=== PATIENT | female | born 1965 | race Caucasian/White ===

== ENCOUNTER → 2017-10-25 14:14 | Outpatient (CLI) | payer OTHER, SELFPAY ==
[2017-10-25 14:19] LABS: Bacteria 0 SEEN /hpf (None Seen); Mucous, Urine 0 SEEN /hpf (<or=2+); Red Blood Cells-Urine 0 SEEN /hpf (0-5)
[2017-10-25 15:38] LABS: Absolute Lymphocyte Count 2.66 X10^3/ul (0.83-4.51); Absolute Neutrophil Count 3.6 X10^3/uL (2.0-7.7); Basophil# 0.03 X10^3/uL; Basophil% 0.4 % (0-1); Eosinophil# 0.14 X10^3/uL; Eosinophils% 2.1 % (0-5); Hematocrit 41.9 % (37-47); Hemoglobin 13.4 g/dl (12.0-15.0); Lymphocyte # 2.66 X10^3/ul (4.0); Lymphocyte % 39.1 % (19-41); Mean Corpuscular Hgb 31.3 pg (27.0-32.0); Mean Corpuscular Volume 97.9 fL (81-99); Mean Platelet Vol. 10.3 fl (6.2-12.0); Monocyte# 0.37 X10^3/uL; Monocyte% 5.4 % (0-10); Platelet Count 234 K/mm3 (150-450); RBC Distribution Width CV 12.9 % (11.6-14.6); Red Blood Count 4.28 M/mm3 (4.2-5.4); White Blood Count 6.8 K/mm3 (4.4-11.0)
[2017-10-25 15:41] LABS: Color, Urine Yellow (Yellow); Glucose, Dipstick Normal (Normal); Ketone-Dipstick Negative (Negative); Leukocyte Esterase-Dipstick 100 /ul (Negative); Nitrite-Dipstick Negative (Negative); Occult Blood-Urine Negative /ul (Negative); Protein-Dipstick Negative (Negative); Specific Gravity, Urine 1.005 (1.002-1.030); Urine Bilirubin Dipstick Negative (Negative); Urine Urobilinogen Normal (Normal)
[2017-10-25 15:42] LABS: POSITIVE COUNT NO; POSITIVE DIFFERENTIAL NO; POSITIVE MORPHOLOGY NO
[2017-10-25 16:11] LABS: White Blood Cells 5-10 SEEN /hpf (0-5)
[2017-10-25 16:12] LABS: Squamous Epithelial Cells - UA 0-5 SEEN /hpf (5-10); Urine Clarity Sl Cldy (Clear)
== END ==
PROVIDERS: Family Provider Family Medicine; PCP Family Medicine; Visit Provider Family Medicine
DX: F17.200 Nicotine dependence, unspecified, uncomplicated (principal)
CPT/HCPCS: 36415; 81001; 85025

== ENCOUNTER → 2017-11-10 12:19 | Outpatient (CLI) | payer OTHER, SELFPAY ==
--- NOTE | 2017-11-10 | LES_PTH ---
PATIENT: KINGSLEY BRYANT [id number] AGE/SX: 59/F ROOM: RE11/10/[address]: Dr. Anupam Cutler MD : [id number] BED: DIS: SPEC #: [id number] RECD: 11/10/17 14:17 STATUS: MISTI MIREYA #: [id number] GIGI: 11/10/17 00:[address]: Anupam Cutler DEPT: SURGICAL PATHOLOGY RECD BY: Junior Poe Tissues: A - Skin of axilla, NOS B - Skin of leg, NOS Procedures: Surgery Specimen Level IV HEADER OPERATION: Excision PRE-OP DIAGNOSIS: Skin lesion TISSUE SUBMITTED: A - Right axilla, B ? Right thigh MICROSCOPIC DIAGNOSIS A. Right axilla skin lesion, biopsy: Intradermal nevus. B. 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 SJ:awais 11/11/17 MICROSCOPIC DESCRIPTION Slides are reviewed. GROSS DESCRIPTION A - Received in fixative is one container labeled with the patient's name and designated right axilla. The specimen consists of a punch biopsy of patrick-brown skin measuring 0.3 cm in diameter and 0.3 cm in length. The specimen is totally submitted in one cassette. It will be bisected at the time of embedding. B - Received in fixative is one container labeled with the patient's name and designated skin lesion right thigh. The specimen consists of a punch biopsy of patrick-white skin measuring 0.5 cm in diameter and 0.2 cm in thickness. A brownish lesion is noted on the surface measuring 0.1 cm in greatest dimension. The entire specimen is submitted in one cassette. It will be bisected at the time of embedding. / AVELINA:awais 11/10/17 TC:1 CPT: 96309 x2
== END ==
PROVIDERS: Family Provider Family Medicine; PCP Family Medicine; Visit Provider Family Medicine
DX: L98.9 Disorder of the skin and subcutaneous tissue, unspecified (principal)
CPT/HCPCS: 88305

== ENCOUNTER → 2018-12-25 14:35 | Outpatient (CLI) | payer OTHER, SELFPAY ==
[2016-10-25 12:12] VITALS: BMI 21.1
[2018-12-25 16:21] LABS: Absolute Lymphocyte Count 2.29 X10^3/uL (0.83-4.51); Absolute Neutrophil Count 2.5 X10^3/uL (2.0-7.7); Basophil# 0.03 X10^3/uL; Basophil% 0.6 % (0-1); Eosinophil# 0.14 X10^3/uL; Eosinophils% 2.7 % (0-5); Hematocrit 39.3 % (37-47); Lymphocyte # 2.29 X10^3/ul (4.0); Lymphocyte % 43.6 % (19-41); Mean Corp Hgb Conc 33.1 g/dL (32-36); Mean Corpuscular Hgb 32.2 pg (27.0-32.0); Mean Corpuscular Volume 97.3 fL (81-99); Mean Platelet Vol. 10.5 fl (6.2-12.0); Monocyte# 0.28 X10^3/uL; Monocyte% 5.3 % (0-10); NRBC Flagged by Analyzer 0 % (0-5); Neutrophil # 2.49 X10^3/uL (2.7-7.7); Neutrophil % 47.4 % (47-70); Platelet Count 220 K/mm3 (150-450); RBC Distribution Width CV 12.3 % (11.6-14.6); RBC Distribution Width SD 44.6 fl (35.1-43.9); Red Blood Count 4.04 M/mm3 (4.2-5.4); White Blood Count 5.3 K/mm3 (4.4-11.0)
[2018-12-25 16:40] LABS: BUN 11 mg/dL (7-18); Creatinine, Serum 0.72 mg/dL (0.55-1.02); Glucose 77 mg/dL (74-106)
[2018-12-25 16:41] LABS: ALB/GLOB Ratio 1.1 RATIO (0.9-2.4); AST(SGOT) 15 U/L (15-37); Alanine Aminotransfer ALT/SGPT 25 U/L (13-56); Albumin, Serum 3.7 g/dL (3.2-5.0); Alkaline Phosphatase 117 U/L (45-117); Anion Gap 6 (5-15); BUN/Creat Ratio 15.2 RATIO (10-20); Calcium,Total 8.5 mg/dL (8.5-10.1); Chloride 110 mmol/L (98-107); EST Glomerular Filtration Rate 89 mL/min (>60); Est Glom Filt Rate - Afr Amer 108 mL/min (>60); Globulin 3.4 g/dL (2.2-4.2); Protein, Total 7.1 g/dL (6.4-8.2); Sodium Level 144 mmol/L (136-145); Thyroid Stim Hormone (TSH) 1.37 uIU/mL (0.358-3.74)
[2018-12-26 09:25] LABS: Hepatitis C Antibody Non-Reactive (Nonreactive)
== END ==
PROVIDERS: Family Provider Family Medicine; PCP Family Medicine; Visit Provider Family Medicine Geriatric Medicine
DX: R53.83 Other fatigue (principal); Z13.89 Encounter for screening for other disorder
CPT/HCPCS: 36415; 80053; 84443; 85025; 86803

== ENCOUNTER → 2019-10-11 | Outpatient (CLI) | payer OTHER, SELFPAY ==
[2016-10-25 12:12] VITALS: BMI 21.1
[2019-10-11 15:46] LABS: Absolute Lymphocyte Count 2.22 X10^3/uL (0.83-4.51); Absolute Neutrophil Count 2.4 X10^3/uL (2.0-7.7); Basophil# 0.03 X10^3/uL; Basophil% 0.6 % (0-1); Eosinophil# 0.13 X10^3/uL; Eosinophils% 2.5 % (0-5); Hematocrit 38.6 % (37-47); Hemoglobin 12.6 g/dL (12.0-15.0); Lymphocyte # 2.22 X10^3/ul (4.0); Lymphocyte % 42.8 % (19-41); Mean Corp Hgb Conc 32.6 g/dL (32-36); Mean Corpuscular Hgb 31.7 pg (27.0-32.0); Mean Corpuscular Volume 97.2 fL (81-99); Mean Platelet Vol. 10.6 fl (6.2-12.0); Monocyte# 0.38 X10^3/uL; Monocyte% 7.3 % (0-10); NRBC Flagged by Analyzer 0 % (0-5); Neutrophil # 2.42 X10^3/uL (2.7-7.7); Neutrophil % 46.6 % (47-70); Platelet Count 218 K/mm3 (150-450); RBC Distribution Width CV 12.6 % (11.6-14.6); RBC Distribution Width SD 44.9 fl (35.1-43.9); Red Blood Count 3.97 M/mm3 (4.2-5.4); White Blood Count 5.2 K/mm3 (4.4-11.0)
[2019-10-11 16:16] LABS: ALB/GLOB Ratio 1.1 RATIO (0.9-2.4); AST(SGOT) 22 U/L (15-37); Alanine Aminotransfer ALT/SGPT 25 U/L (13-56); Albumin, Serum 3.8 g/dL (3.2-5.0); Alkaline Phosphatase 96 U/L (45-117); Anion Gap 7 (5-15); BUN 14 mg/dL (7-18); BUN/Creat Ratio 18.5 RATIO (10-20); Calcium,Total 8.9 mg/dL (8.5-10.1); Chloride 107 mmol/L (98-107); Creatinine, Serum 0.76 mg/dL (0.55-1.02); EST Glomerular Filtration Rate 84 mL/min (>60); Est Glom Filt Rate - Afr Amer 102 mL/min (>60); Globulin 3.4 g/dL (2.2-4.2); Glucose 103 mg/dL (74-106); Potassium 3.8 mmol/L (3.5-5.1); Protein, Total 7.2 g/dL (6.4-8.2); Sodium Level 140 mmol/L (136-145); Thyroid Stim Hormone (TSH) 1.34 uIU/mL (0.358-3.74)
--- OUTSIDE RECORDS SUMMARY | 2020-02-17 12:00 | XMS RPT_ITS | CCD ---
:1965 External Reference #:[id number] Author Organization [facility] Care Team Providers Name Role Phone Unavailable Unavailable Unavailable Results Result Name Value Range Unit Interpretation Flag Date Location trop on 2018-12-20 Troponin I.cardiac <0.020 0.000-0.040 ng/mL Normal 9 [facility] [Mass/Vol] [place] ([address]) Comment: Result Comment: Troponin I r eference range: 0.00-0.040 ng/mL Negative an d non-diagnostic. >0.040 ng/mL Consistent with cardiac damage, increased clinical risk and possibility of myocardial in farction. Serial measurements, a rise & fall in test results, clinical histo ry, appropriate symptoms and/or ECG changes may help assess possibility of TN. *Other non-acute coronary sy ndrome conditions such as CHF, myoc arditis, pulmonary emboli, sepsis and cardiac surgery could result in myoc ardial damage and increased troponi n levels. Performed By: #### CBC, ADIF F, ANEU #### [facility] [address] [place], [place] [address] #### TROP, BMP, GFR #### [address] [address] Troponin I.cardiac <0.020 0.000-0.040 ng/mL Normal 9 [facility] [Mass/Vol] [place] ([address]) Comment: Result Comment: Troponin I r eference range: 0.00-0.040 ng/mL Negative an d non-diagnostic. >0.040 ng/mL Consistent with cardiac damage, increased clinical risk and possibility of myocardial in farction. Serial measurements, a rise & fall in test results, clinical histo ry, appropriate symptoms and/or ECG changes may help assess possibility of TN. *Other non-acute coronary sy ndrome conditions such as CHF, myoc arditis, pulmonary emboli, sepsis and cardiac surgery could result in myoc ardial damage and increased troponi n levels. Performed By: #### TROP #### [place] [id number] [place], [place] [id number] nm myocardial spect stress/rest on 2018-12-20 NM MYOCARDIAL ORIGINAL [facility]20-[facility] SPECT STRESS/REST [facility] STRESS/REST (OR) (00 000) CLINICAL STATEMENT: cp TECHNIQUE: Stress Protocol:ANDRÉS Time Exercised:9:00minutes Predicted Max HR:166 Max HR Achieved:144 Percent Max HR:86 Peak Systolic BP:138/72 Rate-Pressure product: 39727 Radiopharmaceutical(rest): Tc-99m Sestamibi IV Dose:10.7 mCi Radiopharmaceutical(stress): Tc-99m Sestamibi IV Dose:32.9 m Ci SPECT acquisition:SPECT nesha nstruction and reorientation into short axis, vertical and horizontal long axis planes Quantitative LVEF assessment COMPARISON:NONE REPORT:Left ventricle appears normal in size on both s tress and rest images. There appears to be fixed de fect in the distal anteroapical and inferoapical region with normal wall motion, suggestive of soft tissue/breast attenuation artifact. Rest of the myocardium has relatively homogenous radiotracer uptake on both stress and rest images . Gated SPECT imaging revealed normal wall motion and normal end-systolic brightening and thickening of all myocardial segments. Normal left ventricle systolic function, calculated LVEF 61%. Normal left v entricle end-diastolic volume 75 mL. TID ratio 1.06. IMPRESSION: 1. No evidence of inducible ischemia. 2. Fixed defect in the dista l anteroapical and inferoapical region suggestive of breast attenuation artifact; although small prior infarct cannot be completely excluded. 3. Normal wall motion and no rmal left ventricle systolic function, calculated LVEF 61%. 4. No prior study available for comparison. Interpreted By: Catarino Greenberg Preliminary Report By: Catarino Greenberg Electronically Signed By: Catarino Greenberg Dictated Date: 12/20/2018 12:06:39 PM Prelim Date: 12/20/2018 12:06:39 PM Sign Date: 12/20/2018 12:11:18 PM mg on 2018-12-20 Magnesium [Mass/Vol] 1.9 1.8-2.4 mg/dL Normal 9 [facility] ([place]) (0000 0) Comment: Performed By: #### CBC, ADIF F, ANEU #### [address] [address] #### TROP, BMP, GFR #### [address] [address] cbc on 2018-12-20 Erythrocyte distribution 13.4 11.5-14.5 % Normal 12-20 [facility] width (RBC) [Ratio] [place] ([place]) ([address]) Comment: Performed By: #### CBC, ADIF F, ANEU #### [address] [address] #### TROP, BMP, GFR, MG #### [address] [address] Hematocrit (Bld) [Volume 37.9 37.0-47.0 % Normal 12-20 [facility] fraction] ([place]) (0000 0) Comment: Performed By: #### CBC, ADIF F, ANEU #### [address] [address] #### TROP, BMP, GFR, MG #### [address] [address] Hemoglobin (Bld) 12.9 12.0-16.0 G/dL Normal 12-20-2018 [facility] [Mass/Vol] [place] ([place]) ([address]) Comment: Performed By: #### CBC, ADIF F, ANEU #### [address] [address] #### TROP, BMP, GFR, MG #### [address] [address] MCH (RBC) [Entitic mass] 32.8 27.0-31.2 pg High 12-20 [facility] ([place]) (0000 0) Comment: Performed By: #### CBC, ADIF F, ANEU #### [address] [address] #### TROP, BMP, GFR, MG #### [address] [address] MCHC (RBC) [Mass/Vol] 33.9 33.0-37.0 G/dL Normal 12-21-19 19 [facility] ([place]) (0000 0) Comment: Performed By: #### CBC, ADIF F, ANEU #### [place] [address] #### TROP, BMP, GFR, MG #### [address] [address] MCV (RBC) [Entitic vol] 96.8 80.0-94.0 fL High 2018 [facility] ([place]) (0000 0) Comment: Performed By: #### CBC, ADIF F, ANEU #### [place] [address] #### TROP, BMP, GFR, MG #### [place] [address] Platelet mean volume 8.4 7.4-10.4 fL Normal 9 [facility] (Bld) [Entitic vol] ([place]) ([address]) Comment: Performed By: #### CBC, ADIF F, ANEU #### [place] [address] #### TROP, BMP, GFR, MG #### [place] [id number] Platelets (Bld) [#/Vol] 202 130-400 10 3/mcL Normal 2018 [facility] ([place]) ([address]) Comment: Performed By: #### CBC, ADIF F, ANEU #### [place] [id number] #### TROP, BMP, GFR, MG #### [place] [address] RBC (Bld) [#/Vol] 3.92 4.20-5.40 10 6/mcL Low 12-20-2018 [facility] ([place]) (0000 0) Comment: Performed By: #### CBC, ADIF F, ANEU #### [address] [address] #### TROP, BMP, GFR, MG #### [address] [address] WBC (Bld) [#/Vol] 5.70 4.60-10.80 10 3/mcL Normal 12-20-2018 [facility] ([place]) ([address]) Comment: Performed By: #### CBC, ADIF F, ANEU #### [address] [address] #### TROP, BMP, GFR, MG #### [address] [address] bmp on 2018-12-20 Calcium [Mass/Vol] 8.6 8.4-10.2 mg/dL Normal 12-20-2018 [facility] ([place]) (0000 0) Comment: Performed By: #### CBC, ADIF F, ANEU #### [address] [address] #### TROP, BMP, GFR #### [address] [address] Chloride [Moles/Vol] 106 98-107 mmol/L Normal 9 [facility] ([place]) (0000 0) Comment: Performed By: #### CBC, ADIF F, ANEU #### [address] [address] #### TROP, BMP, GFR #### [address] [address] CO2 [Moles/Vol] 26 22-29 mmol/L Normal 12-20-2018 [facility] ([place]) ([address]) Comment: Performed By: #### CBC, ADIF F, ANEU #### [address] [address] #### TROP, BMP, GFR #### [address] [address] Creatinine [Mass/Vol] 0.71 0.55-1.02 mg/dL Normal 12-21-19 19 [facility] ([place]) ([address]) Comment: Performed By: #### CBC, ADIF F, ANEU #### [address] [address] #### TROP, BMP, GFR #### [address] [address] Electrolyte Balance 9.0 mEq/L Normal 12-20-2018 [facility] ([place]) ([address]) Comment: Performed By: #### CBC, ADIF F, ANEU #### [address] [address] #### TROP, BMP, GFR #### [address] [address] Glucose [Mass/Vol] 92 70-105 mg/dL Normal 12-20-2018 [facility] ([place] ([address]) Comment: Performed By: #### CBC, ADIF F, ANEU #### [place] [address] #### TROP, BMP, GFR #### [address] [address] Potassium [Moles/Vol] 4.1 3.5-5.1 mmol/L Normal 12-21-19 [facility] ([place] (0000 0) Comment: Performed By: #### CBC, ADIF F, ANEU #### [place] [address] #### TROP, BMP, GFR #### [address] [address] Sodium [Moles/Vol] 141 136-145 mmol/L Normal 12-20-2018 [facility] ([place] (0000 0) Comment: Performed By: #### CBC, ADIF F, ANEU #### [address] [address] #### TROP, BMP, GFR #### [address] [address] Urea nitrogen [Mass/Vol] 13 7-18 mg/dL Normal 12-20 [facility] ([place] (0000 0) Comment: Performed By: #### CBC, ADIF F, ANEU #### [address] [address] #### TROP, BMP, GFR #### [address] [address] Urea nitrogen/Creatinine [Mass 18 7-27 ratio Normal 12-20-2018 [facility]] [facility] ([place]) ([address]) Comment: Performed By: #### CBC, ADIF F, ANEU #### [address] [address] #### TROP, BMP, GFR #### [address] [address] .neuabs on Neutrophils (Bld) 3.10 2.85-6.16 10 3/mcL Normal 12-20-2018 A [facility] [#/Vol] [facility] ([place]) ([address]) Comment: Performed By: #### CBC, ADIF F, ANEU #### [address] [address] #### TROP, BMP, GFR #### [address] [address] .gfr on 2018-12-20 GFR Non- 86 ml/min/1.73sqm Normal 12-20-2018 [facility] ([place] ([address]) Comment: Result Comment: GFR Population mean for Afri can [place]an, Non- Americans Ages 20-29 = 116 mL/min/1.73 sq.m. Ages 30-39 = 107 mL/min/1.73 sq.m. Ages 40-49 = 99 mL/min/1.73 sq.m. Ages 50-59 = 93 mL/min/1.73 sq.m. Ages 60-69 = 85 mL/min/1.73 sq.m. Ages 70+ = 75 mL/min/1.73 sq .m. Chronic Kidney Disease: Less than 60 mL/min/1.73 square meters End Stage Renal Disease: Les s than 15 mL/min/1.73 square meters Performed By: #### CBC, ADIF F, ANEU #### [address] [address] #### TROP, BMP, GFR #### [address] [address] GFR 104 ml/min/1.73sqm Normal 08- [facility] ([place]) (0000 0) Comment: Result Comment: GFR Population mean for Afri can [place], Non- Americans Ages 20-29 = 116 mL/min/1.73 sq.m. Ages 30-39 = 107 mL/min/1.73 sq.m. Ages 40-49 = 99 mL/min/1.73 sq.m. Ages 50-59 = 93 mL/min/1.73 sq.m. Ages 60-69 = 85 mL/min/1.73 sq.m. Ages 70+ = 75 mL/min/1.73 sq .m. Chronic Kidney Disease: Less than 60 mL/min/1.73 square meters End Stage Renal Disease: Les s than 15 mL/min/1.73 square meters Performed By: #### CBC, ADIF F, ANEU #### [address] [address] #### TROP, BMP, GFR #### [address] [address] .auto diff on 12-20 Ammonia (P) [Mass/Vol] 0.40 0.15-1.00 10 3/mcL Normal [address] [place] [address] ([place]) ([address]) Comment: Performed By: #### CBC, ADIF F, ANEU #### [address] [address] #### TROP, BMP, GFR, MG #### [address] [address] Basophils (Bld) 0.00 0.00-0.19 10 3/mcL Normal 12-20-2018 [facility] [#/Vol] [facility] ([place]) ([address]) Comment: Performed By: #### CBC, ADIF F, ANEU #### [address] [address] #### TROP, BMP, GFR, MG #### [address] [address] Basophils/100 WBC (Bld) 0.7 0.0-2.5 % Normal 2018 [facility] ([place]) (0000 0) Comment: Performed By: #### CBC, ADIF F, ANEU #### [place] [address] #### TROP, BMP, GFR, MG #### [address] [address] Eosinophils (Bld) 0.20 0.00-0.40 10 3/mcL Normal 12-20-2018 A [facility] [#/Vol] [facility] ([place]) ([address]) Comment: Performed By: #### CBC, ADIF F, ANEU #### [place] [address] #### TROP, BMP, GFR, MG #### [address] [address] Eosinophils/100 WBC (Bld) 3.1 0.0-7.0 % Normal 12-01 [facility] ([place]) (0000 0) Comment: Performed By: #### CBC, ADIF F, ANEU #### [place] [address] #### TROP, BMP, GFR, MG #### [address] [address] Lymphocytes (Bld) 2.00 0.77-3.85 10 3/mcL Normal 12-20-2018 [facility] [#/Vol] [facility] ([place]) ([address]) Comment: Performed By: #### CBC, ADIF F, ANEU #### [place] [address] #### TROP, BMP, GFR, MG #### [address] [address] Lymphocytes/100 WBC (Bld) 34.3 10.0-50.0 % Normal 12-01 [facility] ([place]) ([address]) Comment: Performed By: #### CBC, ADIF F, ANEU #### [address] [address] #### TROP, BMP, GFR, MG #### [address] [address] Monocytes/100 WBC (Bld) 7.1 1.7-13.0 % Normal 2018 [facility] ([place]) (0000 0) Comment: Performed By: #### CBC, ADIF F, ANEU #### [address] [address] #### TROP, BMP, GFR, MG #### [address] [address] Neutrophils/100 WBC (Bld) 54.8 37.0-80.0 % Normal 12-01 [facility] ([place]) ([address]) Comment: Performed By: #### CBC, ADIF F, ANEU #### [address] [address] #### TROP, BMP, GFR, MG #### [address] [address] xr chest 1 view on 2018-12-19 XR CHEST 1 VIEW ORIGINAL Normal 12-19-2018 [facility] XR CHEST 1 VIEW [facility] [place] ([place]) AP portable upright ([address]) CLINICAL INDICATION: chest pain COMPARISON: None FINDINGS: The heart is lauri l in size. Hilar and mediastinal contours are normal. There is no pleural effusion. The lungs are clear. There is no vascular congestion. No acute skeletal abnormality is see n. A defect at the lateral e nd of the LEFT clavicle is likely postoperative in nature. There is mild dextroscoliosis of the lower portion of the dorsal spine. IMPRESSION: No acute cardiopulmonary disease. Interpreted By: Jhonatan Caicedo MD Preliminary Report By: Jhonatan Caicedo MD Electronically Signed By: Jhonatan Caicedo MD Dictated Date: 12/19/2018 2:02:32 PM Prelim Date: 12/19/2018 2:02:32 PM Sign Date: 12/19/2018 2:03:56 PM trop on 2018-12-19 Troponin I.cardiac <0.020 0.000-0.040 ng/mL Normal 9 [facility] [Mass/Vol] [place] ([address]) Comment: Result Comment: Troponin I r eference range: 0.00-0.040 ng/mL Negative an d non-diagnostic. >0.040 ng/mL Consistent with cardiac damage, increased clinical risk and possibility of myocardial in farction. Serial measurements, a rise & fall in test results, clinical histo ry, appropriate symptoms and/or ECG changes may help assess possibility of TN. *Other non-acute coronary sy ndrome conditions such as CHF, myoc arditis, pulmonary emboli, sepsis and cardiac surgery could result in myoc ardial damage and increased troponi n levels. Performed By: #### CBC, ADIF F, ANEU #### [place] [address] #### TROP, BMP, GFR #### [place] [address] cbc on 2018-12-19 Erythrocyte distribution 13.5 11.5-14.5 % Normal 12-19 [facility] width (RBC) [Ratio] [place] ([place]) ([address]) Comment: Performed By: #### CBC, ADIF F, ANEU #### [place] [address] #### TROP, BMP, GFR #### [place] [address] Hematocrit (Bld) [Volume 40.1 37.0-47.0 % Normal 12-19 [facility] Foundation fraction] ([place]) (0000 0) Comment: Performed By: #### CBC, ADIF F, ANEU #### [place] [address] #### TROP, BMP, GFR #### [place] [address] Hemoglobin (Bld) 13.5 12.0-16.0 G/dL Normal 12-19-2018 [facility] [Mass/Vol] [place] ([place]) ([address]) Comment: Performed By: #### CBC, ADIF F, ANEU #### [address] [address] #### TROP, BMP, GFR #### [address] [address] MCH (RBC) [Entitic mass] 32.5 27.0-31.2 pg High 12-19 [facility] ([place]) (0000 0) Comment: Performed By: #### CBC, ADIF F, ANEU #### [place] [address] #### TROP, BMP, GFR #### [address] [address] MCHC (RBC) [Mass/Vol] 33.6 33.0-37.0 G/dL Normal 12-20-19 19 [facility] ([place]) (0000 0) Comment: Performed By: #### CBC, ADIF F, ANEU #### [place] [address] #### TROP, BMP, GFR #### [address] [address] MCV (RBC) [Entitic vol] 97.0 80.0-94.0 fL High 2018 [facility] ([place]) (0000 0) Comment: Performed By: #### CBC, ADIF F, ANEU #### [place] [address] #### TROP, BMP, GFR #### [place] [address] Platelet mean volume 8.0 7.4-10.4 fL Normal 9 [facility] (Bld) [Entitic vol] ([place]) ([address]) Comment: Performed By: #### CBC, ADIF F, ANEU #### [place] [address] #### TROP, BMP, GFR #### [address] [address] Platelets (Bld) [#/Vol] 216 130-400 10 3/mcL Normal 2018 [facility] ([place]) ([address]) Comment: Performed By: #### CBC, ADIF F, ANEU #### [address] [address] #### TROP, BMP, GFR #### [address] [address] RBC (Bld) [#/Vol] 4.14 4.20-5.40 10 6/mcL Low 12-19-2018 A [facility] ([place]) (0000 0) Comment: Performed By: #### CBC, ADIF F, ANEU #### [place] [address] #### TROP, BMP, GFR #### [address] [address] WBC (Bld) [#/Vol] 6.40 4.60-10.80 10 3/mcL Normal 12-19-2018 [facility] ([place]) ([address]648) Comment: Performed By: #### CBC, ADIF F, ANEU #### [address] [address] #### TROP, BMP, GFR #### [address] [address] bmp on 2018-12-19 Calcium [Mass/Vol] 8.8 8.4-10.2 mg/dL Normal 12-19-2018 [facility] ([place]) (0000 0) Comment: Performed By: #### CBC, ADIF F, ANEU #### [place] [address] #### TROP, BMP, GFR #### [address] [address] Chloride [Moles/Vol] 103 98-107 mmol/L Normal 9 [facility] ([place]) (0000 0) Comment: Performed By: #### CBC, ADIF F, ANEU #### [address] [address] #### TROP, BMP, GFR #### [address] [address] CO2 [Moles/Vol] 28 22-29 mmol/L Normal 12-19-2018 [facility] ([place]) ([address]) Comment: Performed By: #### CBC, ADIF F, ANEU #### [address] [address] #### TROP, BMP, GFR #### [address] [address] Creatinine [Mass/Vol] 0.84 0.55-1.02 mg/dL Normal 12-20-19 [facility] ([place]) ([address]) Comment: Performed By: #### CBC, ADIF F, ANEU #### [address] [address] #### TROP, BMP, GFR #### [address] [address] Electrolyte Balance 10.0 mEq/L Normal 12-19-2018 [facility] ([place]) ([address]887) Comment: Performed By: #### CBC, ADIF F, ANEU #### [address] [address] #### TROP, BMP, GFR #### [address] [address] Glucose [Mass/Vol] 144 70-105 mg/dL High 12-19-2018 [facility] ([place]) ([address]66) Comment: Performed By: #### CBC, ADIF F, ANEU #### [address] [address] #### TROP, BMP, GFR #### [address] [address] Potassium [Moles/Vol] 4.0 3.5-5.1 mmol/L Normal 12-20-19 19 [facility] ([place]) (0000 0) Comment: Performed By: #### CBC, ADIF F, ANEU #### [address] [address] #### TROP, BMP, GFR #### [address] [address] Sodium [Moles/Vol] 141 136-145 mmol/L Normal 12-19-2018 [facility] ([place]) (0000 0) Comment: Performed By: #### CBC, ADIF F, ANEU #### [address] [address] #### TROP, BMP, GFR #### [address] [address] Urea nitrogen [Mass/Vol] 14 7-18 mg/dL Normal 12-19 [facility] ([place]) (0000 0) Comment: Performed By: #### CBC, ADIF F, ANEU #### [place] [address] #### TROP, BMP, GFR #### [address] [address] Urea nitrogen/Creatinine [Mass 17 7-27 ratio Normal 12-19-2018 [facility]] [facility] ([place]) ([address]) Comment: Performed By: #### CBC, ADIF F, ANEU #### [place] [address] #### TROP, BMP, GFR #### [address] [address] .neuabs on Neutrophils (Bld) 3.50 2.85-6.16 10 3/mcL Normal 12-19-2018 [facility] [#/Vol] [facility] ([place]) ([address]) Comment: Performed By: #### CBC, ADIF F, ANEU #### [place] [id number] #### TROP, BMP, GFR #### [address] [address] .gfr on 2018-12-19 GFR Non- 71 ml/min/1.73sqm Normal 12-19-2018 [facility] ([place]) ([address]) Comment: Result Comment: GFR Population mean for Afri can [place]an, Non- Americans Ages 20-29 = 116 mL/min/1.73 sq.m. Ages 30-39 = 107 mL/min/1.73 sq.m. Ages 40-49 = 99 mL/min/1.73 sq.m. Ages 50-59 = 93 mL/min/1.73 sq.m. Ages 60-69 = 85 mL/min/1.73 sq.m. Ages 70+ = 75 mL/min/1.73 sq .m. Chronic Kidney Disease: Less than 60 mL/min/1.73 square meters End Stage Renal Disease: Les s than 15 mL/min/1.73 square meters Performed By: #### CBC, ADIF F, ANEU #### [address] [address] #### TROP, BMP, GFR #### [address] [address] GFR 86 ml/min/1.73sqm Normal 12-01 [facility] ([place]) (0000 0) Comment: Result Comment: GFR Population mean for Afri can [place]an, Non- Americans Ages 20-29 = 116 mL/min/1.73 sq.m. Ages 30-39 = 107 mL/min/1.73 sq.m. Ages 40-49 = 99 mL/min/1.73 sq.m. Ages 50-59 = 93 mL/min/1.73 sq.m. Ages 60-69 = 85 mL/min/1.73 sq.m. Ages 70+ = 75 mL/min/1.73 sq .m. Chronic Kidney Disease: Less than 60 mL/min/1.73 square meters End Stage Renal Disease: Les s than 15 mL/min/1.73 square meters Performed By: #### CBC, ADIF F, ANEU #### [address] [address] #### TROP, BMP, GFR #### [address] [address] .auto diff on 12-19 Ammonia (P) [Mass/Vol] 0.30 0.15-1.00 10 3/mcL Normal 019 [facility] ([place]) ([address]) Comment: Performed By: #### CBC, ADIF F, ANEU #### [address] [address] #### TROP, BMP, GFR #### [address] [address] Basophils (Bld) 0.10 0.00-0.19 10 3/mcL Normal 12-19-2018 [facility] [#/Vol] [facility] ([place]) ([address]) Comment: Performed By: #### CBC, ADIF F, ANEU #### [address] [address] #### TROP, BMP, GFR #### [address] [address] Basophils/100 WBC (Bld) 0.8 0.0-2.5 % Normal 2018 [facility] ([place]) (0000 0) Comment: Performed By: #### CBC, ADIF F, ANEU #### [place] [address] #### TROP, BMP, GFR #### [address] [address] Eosinophils (Bld) 0.10 0.00-0.40 10 3/mcL Normal 12-19-2018 [facility] [#/Vol] [facility] ([place]) ([address]) Comment: Performed By: #### CBC, ADIF F, ANEU #### [place] [address] #### TROP, BMP, GFR #### [address] [address] Eosinophils/100 WBC (Bld) 2.2 0.0-7.0 % Normal 12-01 [facility] ([place]) (0000 0) Comment: Performed By: #### CBC, ADIF F, ANEU #### [place] [address] #### TROP, BMP, GFR #### [address] [address] Lymphocytes (Bld) 2.40 0.77-3.85 10 3/mcL Normal 12-19-2018 [facility] [#/Vol] [facility] ([place]) ([address]) Comment: Performed By: #### CBC, ADIF F, ANEU #### [place] [address] [place], [place] [address] #### TROP, BMP, GFR #### [address] [address] Lymphocytes/100 WBC (Bld) 37.2 10.0-50.0 % Normal 12-01 [facility] ([place]) ([address]408) Comment: Performed By: #### CBC, ADIF F, ANEU #### [address] [address] #### TROP, BMP, GFR #### [address] [address] Monocytes/100 WBC (Bld) 5.3 1.7-13.0 % Normal 2018 [facility] ([place]) (0000 0) Comment: Performed By: #### CBC, ADIF F, ANEU #### [address] [address] #### TROP, BMP, GFR #### [address] [address] Neutrophils/100 WBC (Bld) 54.5 37.0-80.0 % Normal 12-01 [facility] ([place]) ([address]373) Comment: Performed By: #### CBC, ADIF F, ANEU #### [address] [address] #### TROP, BMP, GFR #### [address] [address] Summary Purpose Family History No Family History Records Found Advance Directives No Advanced Directives Records Found Additional Source Comments FOR RECORDS PERTAINING TO PATIENTS WHO ARE OR HAVE BEEN ENROLLED IN A CHEMICAL DEPENDENCY/SUBSTANCE ABUSE PROGRAM, SOME INFORMATION MAY BE OMITTED. This clinical summary was aggregated from multiple sources. Caution should be exercised in using it in the provision of clinical care. This summary normalizes information from multiple sources, and as a consequence, information in this document may materially changethe coding, format and clinical context of patient data. In addition, data may be omittedin some cases. CLINICAL DECISIONS SHOULD BE BASED ON THE PRIMARY CLINICAL RECORDS. [facility] provides no warranty or guarantee of the accuracy or completeness of information in this document. UNRECOGNIZED CONTENT PROVIDED BELOW FOR UNRECOGNIZED SECTION INFORMATION SOURCE DATE CREATED AUTHOR AUTHOR'S ORGANIZATIO N 03/20/2019 [facility]
== END | disposition home or self-care (01) ==
PROVIDERS: PCP Family Medicine; Visit Provider Family Medicine Geriatric Medicine
DX: R53.83 Other fatigue (principal)
CPT/HCPCS: 36415; 80053; 84443; 85025

== ENCOUNTER → 2020-05-12 09:12 | Outpatient (CLI) | payer OTHER, SELFPAY ==
[2016-10-25 12:12] VITALS: BMI 21.1
== END ==
LOC: POLAB3 09:13 → LAB.FUTURE 11:58
PROVIDERS: PCP Family Medicine; Visit Provider Family Medicine Geriatric Medicine
DX: R53.83 Other fatigue (principal)

== ENCOUNTER → 2020-05-12 17:22 | Outpatient (CLI) | payer BC, SELFPAY | PROVIDERS: PCP Family Medicine Geriatric Medicine; Referring Provider Family Medicine Geriatric Medicine; Visit Provider Family Medicine Geriatric Medicine | DX: R68.83 Chills (without fever) (principal) | CPT/HCPCS: 87633; 87635; C9803; U0005; U0003 ==

== ENCOUNTER → 2020-05-26 | Outpatient (CLI) | payer BC, SELFPAY | END | disposition home or self-care (01) | LOC: LABSPEC 17:26 | PROVIDERS: PCP Family Medicine Geriatric Medicine; Referring Provider Family Medicine Geriatric Medicine; Visit Provider Family Medicine Geriatric Medicine | DX: R68.83 Chills (without fever) (principal) | CPT/HCPCS: 87633; 87635; C9803; U0003 ==

== ENCOUNTER → 2020-06-02 13:39 | Outpatient (CLI) | payer BC, SELFPAY ==
[2016-10-25 12:12] VITALS: BMI 21.1
[2020-06-02 14:44] LABS: Absolute Lymphocyte Count 1.82 X10^3/uL (0.83-4.51); Absolute Neutrophil Count 4.3 X10^3/uL (2.0-7.7); Basophil# 0.02 X10^3/uL; Basophil% 0.3 % (0-1); Eosinophil# 0.09 X10^3/uL; Eosinophils% 1.4 % (0-5); Hematocrit 40.2 % (37-47); Hemoglobin 12.9 g/dL (12.0-15.0); Lymphocyte # 1.82 X10^3/ul (4.0); Lymphocyte % 27.4 % (19-41); Mean Corp Hgb Conc 32.1 g/dL (32-36); Mean Corpuscular Volume 96.6 fL (81-99); Mean Platelet Vol. 10.7 fl (6.2-12.0); Monocyte# 0.36 X10^3/uL; Monocyte% 5.4 % (0-10); NRBC Flagged by Analyzer 0 % (0-5); Neutrophil # 4.33 X10^3/uL (2.7-7.7); Neutrophil % 65.2 % (47-70); Platelet Count 220 K/mm3 (150-450); RBC Distribution Width CV 12.4 % (11.6-14.6); RBC Distribution Width SD 44.6 fl (35.1-43.9); Red Blood Count 4.16 M/mm3 (4.2-5.4); White Blood Count 6.6 K/mm3 (4.4-11.0)
[2020-06-02 15:25] LABS: AST(SGOT) 19 U/L (15-37); Alanine Aminotransfer ALT/SGPT 29 U/L (13-56); Albumin, Serum 3.7 g/dL (3.2-5.0); Alkaline Phosphatase 106 U/L (45-117); Anion Gap 8 (5-15); BUN 18 mg/dL (7-18); BUN/Creat Ratio 22.2 RATIO (10-20); Calcium,Total 8.8 mg/dL (8.5-10.1); Chloride 106 mmol/L (98-107); Creatinine, Serum 0.81 mg/dL (0.55-1.02); EST Glomerular Filtration Rate 78 mL/min (>60); Est Glom Filt Rate - Afr Amer 94 mL/min (>60); Globulin 3.6 g/dL (2.2-4.2); Glucose 96 mg/dL (74-106); Protein, Total 7.3 g/dL (6.4-8.2); Sodium Level 139 mmol/L (136-145); Thyroid Stim Hormone (TSH) 1.28 uIU/mL (0.358-3.74)
== END ==
PROVIDERS: PCP Family Medicine Geriatric Medicine; Visit Provider Family Medicine Geriatric Medicine
DX: R53.83 Other fatigue (principal)
CPT/HCPCS: 36415; 80053; 84443; 85025

== ENCOUNTER → 2020-06-16 14:44 | Outpatient (CLI) | payer BC, SELFPAY ==
[2016-10-25 12:12] VITALS: BMI 21.1
--- NOTE | 2020-06-16 14:47 | CT_ITS ---
STUDY: LOW DOSE CT LUNG CANCER SCREENING REASON FOR EXAM: Female, 55 years old. SMOKER 1 PPD X 30 YEARS. RADIATION DOSAGE (If Supplied By Facility): CTDIvol = ( 3.02 ) mGy, DLP = ( 114.75 ) mGycm TECHNIQUE: No contrast was administered. Low dose technique was utilized (average mAS-38 and kVp 120). 1.25 mm axial source images with a slice interval of 1.25-mm were reconstructed in lung windows. 2.5 mm axial source images with a slice interval of 2.5-mm were reconstructed in lung windows. 5.0 mm axial source images with a slice interval of 5.0-mm were reconstructed in soft tissue windows. Nodule measured using lung windows on PACS and/or independent workstation with automated measurement of minimum and maximum diameter. Nodule measurement reported as average diameter rounded to the nearest whole number. Growth is defined as an increase ins size of greater than 1.5 mm. COMPARISON: None. NODULES: No suspicious nodule is seen. Emphysema: Hyperinflation. Endobronchial lesion: None Aorta: Atherosclerotic plaque formation of the aortic arch. Coronary arteries: Coronary artery calcification. Mediastinal nodes: Small benign appearing mediastinal lymph nodes. Other chest and abdominal findings: Degenerative changes of the thoracic vertebrae. CT/Low Dose CT Lung Screening IMPRESSION: Lung-RADS category 2 - Continue annual screening with LDCT in 12 months. IMPORTANT NOTES FOR USE: ACR Lung-RADS Version 1.0 Assessment Categories Release Date: August 27, 2013 Category: Coded 0-4 bases on nodule(s) with highest degree of suspicion. Negative screen is defined as categories 1 and 2; a positive screen is defined as categories 3 and 4. Category 3 and 4A nodules that are unchanged on interval CT should be coded as category 2, and individuals returned to screening in 12 months. Category 4X: Category 3 or 4 nodules with additional imaging findings that increase the suspicion of lung cancer, such as spiculation, GGN that doubles in size in 1 year, enlarged lymph notes, etc. Category Modifiers: S (significant finding unrelated to lung cancer) and C (prior history of treated lung cancer) may be added to the 0-4 Lung-RADS Electronically Signed: Meño Deleon MD at 15:18 EST , Service support ,
--- NOTE | 2020-06-16 14:59 | BI_ITS ---
MAMMOGRAPHY - BILATERAL SCREENING REASON FOR EXAM: Female, 55 years old. Routine annual screening examination. PERTINENT HISTORY: Aunt with breast cancer. TECHNIQUE: Digital bilateral breast danay (3D mammographic acquisition) in the CC and MLO projections. 2-D mediolateral oblique (MLO) and craniocaudad (CC) views of both breasts were obtained. CAD: Full Field Digital Mammography with Computer Added Detection was performed. COMPARISON: None. Baseline examination. FINDINGS: Breast Composition: The breasts are heterogeneously dense, which may obscure small masses. There are no dominant masses or suspicious calcifications. Benign appearing bilateral axillary lymph nodes. No other significant abnormalities are identified. BI/SCRN MAMM (CAD)W/DANAY BILAT IMPRESSION: Negative screening mammogram. Yearly followup mammogram recommended. (A) ASSESSMENT CATEGORY: BIRADS Category 2: Benign. A letter regarding these results will be sent to the patient by the facility within 30 days. Approximately 10% of breast cancers are not detected by mammography. A normal mammogram should not delay biopsy of a clinically suspicious abnormality. [id number] Electronically Signed: Meño Deleon MD at 8:04 EST , Service support ,
== END ==
PROVIDERS: PCP Family Medicine Geriatric Medicine; Referring Provider Family Medicine Geriatric Medicine; Visit Provider Family Medicine Geriatric Medicine
DX: Z12.31 Encounter for screening mammogram for malignant neoplasm of breast (principal); F17.210 Nicotine dependence, cigarettes, uncomplicated; Z80.3 Family history of malignant neoplasm of breast
CPT/HCPCS: 71271; 77063; 77067

== ENCOUNTER → 2020-12-22 11:50 | Outpatient (CLI) | payer BC, SELFPAY ==
[2016-10-25 12:12] VITALS: BMI 21.1
[2020-12-22 12:53] LABS: Absolute Lymphocyte Count 1.58 X10^3/uL (0.83-4.51); Absolute Neutrophil Count 3.4 X10^3/uL (2.0-7.7); Basophil# 0.03 X10^3/uL; Basophil% 0.5 % (0-1); Eosinophil# 0.12 X10^3/uL; Eosinophils% 2.2 % (0-5); Hematocrit 42.2 % (37-47); Hemoglobin 13.7 g/dL (12.0-15.0); Lymphocyte # 1.58 X10^3/ul (0.83-4.51); Lymphocyte % 28.6 % (19-41); Mean Corp Hgb Conc 32.5 g/dL (32-36); Mean Corpuscular Hgb 31.3 pg (27.0-32.0); Mean Corpuscular Volume 96.3 fL (81-99); Mean Platelet Vol. 10.5 fl (6.2-12.0); Monocyte# 0.38 X10^3/uL; Monocyte% 6.9 % (0-10); NRBC Flagged by Analyzer 0.4 % (0-5); Neutrophil % 61.6 % (47-70); Platelet Count 244 K/mm3 (150-450); RBC Distribution Width CV 12.6 % (11.6-14.6); RBC Distribution Width SD 45.1 fl (35.1-43.9); Red Blood Count 4.38 M/mm3 (4.2-5.4); White Blood Count 5.5 K/mm3 (4.4-11.0)
[2020-12-22 13:05] LABS: AST(SGOT) 25 U/L (15-37); Alanine Aminotransfer ALT/SGPT 32 U/L (13-56); Albumin, Serum 3.8 g/dL (3.2-5.0); Alkaline Phosphatase 110 U/L (45-117); Anion Gap 6 (5-15); BUN 12 mg/dL (7-18); BUN/Creat Ratio 15.8 RATIO (10-20); Calcium,Total 9.3 mg/dL (8.5-10.1); Chloride 109 mmol/L (98-107); Creatinine, Serum 0.76 mg/dL (0.55-1.02); EST Glomerular Filtration Rate 84 mL/min (>60); Est Glom Filt Rate - Afr Amer 101 mL/min (>60); Globulin 3.9 g/dL (2.2-4.2); Glucose 90 mg/dL (74-106); Potassium 4.4 mmol/L (3.5-5.1); Protein, Total 7.7 g/dL (6.4-8.2); Sodium Level 138 mmol/L (136-145); Thyroid Stim Hormone (TSH) 1.41 uIU/mL (0.358-3.74)
== END ==
PROVIDERS: PCP Family Medicine Geriatric Medicine; Visit Provider Family Medicine Geriatric Medicine
DX: R53.83 Other fatigue (principal)
CPT/HCPCS: 36415; 80053; 84443; 85025

== ENCOUNTER 2021-06-08 13:53 | Outpatient (CLI) | payer BC, SELFPAY ==
[2021-06-08 15:43] LABS: Absolute Lymphocyte Count 2.08 X10^3/uL (0.83-4.51); Absolute Neutrophil Count 2.6 X10^3/uL (2.0-7.7); Basophil# 0.03 X10^3/uL; Basophil% 0.6 % (0-1); Eosinophil# 0.11 X10^3/uL; Eosinophils% 2.1 % (0-5); Hematocrit 37.9 % (37-47); Hemoglobin 12.4 g/dL (12.0-15.0); Lymphocyte # 2.08 X10^3/ul (0.83-4.51); Lymphocyte % 40.3 % (19-41); Mean Corp Hgb Conc 32.7 g/dL (32-36); Mean Corpuscular Hgb 31.2 pg (27.0-32.0); Mean Corpuscular Volume 95.5 fL (81-99); Mean Platelet Vol. 10.4 fl (6.2-12.0); Monocyte# 0.31 X10^3/uL; NRBC Flagged by Analyzer 0 % (0-5); Neutrophil # 2.62 X10^3/uL (2.7-7.7); Neutrophil % 50.8 % (47-70); Platelet Count 220 K/mm3 (150-450); RBC Distribution Width CV 12.6 % (11.6-14.6); RBC Distribution Width SD 44.2 fl (35.1-43.9); Red Blood Count 3.97 M/mm3 (4.2-5.4); White Blood Count 5.2 K/mm3 (4.4-11.0)
[2021-06-08 16:17] LABS: AST(SGOT) 18 U/L (15-37); Alanine Aminotransfer ALT/SGPT 32 U/L (13-56); Albumin, Serum 3.7 g/dL (3.2-5.0); Alkaline Phosphatase 107 U/L (45-117); Anion Gap 5 (5-15); BUN 14 mg/dL (7-18); BUN/Creat Ratio 16.8 RATIO (10-20); Calcium,Total 8.8 mg/dL (8.5-10.1); Chloride 107 mmol/L (98-107); Creatinine, Serum 0.83 mg/dL (0.55-1.02); EST Glomerular Filtration Rate 75 mL/min (>60); Est Glom Filt Rate - Afr Amer 91 mL/min (>60); Globulin 3.6 g/dL (2.2-4.2); Glucose 106 mg/dL (74-106); Potassium 3.9 mmol/L (3.5-5.1); Protein, Total 7.3 g/dL (6.4-8.2); Sodium Level 139 mmol/L (136-145); Thyroid Stim Hormone (TSH) 1.28 uIU/mL (0.358-3.74)
== END 2021-06-08 23:59 | disposition home or self-care (01) ==
LOC: POLAB3 13:54
PROVIDERS: PCP Family Medicine Geriatric Medicine; Visit Provider Family Medicine Geriatric Medicine
DX: R53.83 Other fatigue (principal)
CPT/HCPCS: 36415; 80053; 84443; 85025

== ENCOUNTER → 2022-05-17 | Outpatient (CLI) | payer OTHER, SELFPAY ==
[2022-05-17 13:07] LABS: Absolute Lymphocyte Count 1.84 X10^3/uL (0.83-4.51); Basophil# 0.03 X10^3/uL; Basophil% 0.5 % (0-1); Eosinophil# 0.16 X10^3/uL; Eosinophils% 2.9 % (0-5); Hematocrit 40.4 % (37-47); Hemoglobin 13.3 g/dL (12.0-15.0); Lymphocyte # 1.84 X10^3/ul (0.83-4.51); Lymphocyte % 33.3 % (19-41); Mean Corp Hgb Conc 32.9 g/dL (32-36); Mean Corpuscular Hgb 31.5 pg (27.0-32.0); Mean Corpuscular Volume 95.7 fL (81-99); Mean Platelet Vol. 10.8 fl (6.2-12.0); Monocyte# 0.45 X10^3/uL; Monocyte% 8.1 % (0-10); NRBC Flagged by Analyzer 0.4 % (0-5); Neutrophil # 3.03 X10^3/uL (2.7-7.7); Neutrophil % 54.8 % (47-70); Platelet Count 245 K/mm3 (150-450); RBC Distribution Width CV 12.6 % (11.6-14.6); RBC Distribution Width SD 44.6 fl (35.1-43.9); Red Blood Count 4.22 M/mm3 (4.2-5.4); White Blood Count 5.5 K/mm3 (4.4-11.0)
[2022-05-17 13:27] LABS: ALB/GLOB Ratio 1.1 RATIO (0.9-2.4); AST(SGOT) 20 U/L (15-37); Alanine Aminotransfer ALT/SGPT 35 U/L (13-56); Albumin, Serum 3.8 g/dL (3.2-5.0); Alkaline Phosphatase 94 U/L (45-117); Anion Gap 7 (5-15); BUN 14 mg/dL (7-18); Calcium,Total 9.1 mg/dL (8.5-10.1); Chloride 107 mmol/L (98-107); Creatinine, Serum 0.82 mg/dL (0.55-1.02); EST Glomerular Filtration Rate 76 mL/min (>60); Est Glom Filt Rate - Afr Amer 92 mL/min (>60); Globulin 3.6 g/dL (2.2-4.2); Glucose 89 mg/dL (74-106); Potassium 4.1 mmol/L (3.5-5.1); Protein, Total 7.4 g/dL (6.4-8.2); Sodium Level 140 mmol/L (136-145)
== END | disposition home or self-care (01) ==
PROVIDERS: PCP Family Medicine Geriatric Medicine; Visit Provider Family Medicine Geriatric Medicine
DX: R53.83 Other fatigue (principal)
CPT/HCPCS: 36415; 80053; 84443; 85025

== ENCOUNTER → 2022-06-09 | Outpatient (CLI) | payer OTHER, SELFPAY ==
--- NOTE | 2022-06-09 14:57 | CT_ITS ---
EXAM: CT LEFT LOWER EXTREMITY WITHOUT INTRAVENOUS CONTRAST CLINICAL INDICATION: L FOOT PAIN TECHNIQUE: Helically acquired images were obtained of the left lower extremity without intravenous contrast. 2-D reformats were performed by the technologist. CTDIvol = ( 15.35 ) mGy, DLP = ( 392.14 ) mGycm This CT exam was performed using one or more of the following dose reduction techniques: automated exposure control, adjustment of the mA and/or kV according to patient size, and/or use of iterative reconstruction technique. This report was created using [employer] technology. COMPARISON: None. FINDINGS: BONES/JOINTS: Acute nondisplaced intra-articular fracture involving the base of the fifth metatarsal. No adjacent or any other fractures. Tiny plantar and plantar calcaneal enthesophytes. Preservation of the joint space. No acute or healing fracture or malalignment. No unusual lytic sclerotic lesions of bone. SOFT TISSUES: Tendons are intact. No soft tissue swelling or gas. No radiopaque foreign body. OTHER FINDINGS: No significant masses or fluid collections. CT/Extremity Lower without Contra IMPRESSION: Acute nondisplaced intra-articular fracture involving the base of the fifth metatarsal. Electronically Signed: Binh Mcgrath MD at 16:03 EST ,
== END | disposition home or self-care (01) ==
LOC: CT 14:56
PROVIDERS: PCP Family Medicine Geriatric Medicine; Referring Provider Family Medicine Geriatric Medicine; Visit Provider Family Medicine Geriatric Medicine
DX: M79.672 Pain in left foot (principal)
CPT/HCPCS: 73700

== ENCOUNTER → 2022-06-11 | Outpatient (CLI) | payer OTHER, SELFPAY ==
[2022-06-11 12:05] LABS: Vitamin D,25 Hydroxy 20.7 ng/mL
== END | disposition home or self-care (01) ==
LOC: LAB 10:44
PROVIDERS: PCP Family Medicine Geriatric Medicine; Referring Provider Podiatrist; Visit Provider Podiatrist
DX: S92.352A Displaced fracture of fifth metatarsal bone, left foot, initial encounter for closed fracture (principal); X58.XXXA Exposure to other specified factors, initial encounter
CPT/HCPCS: 36415; 82306

== ENCOUNTER → 2022-06-14 | Outpatient (CLI) | payer OTHER, SELFPAY ==
--- NOTE | 2022-06-14 13:30 | CT_ITS ---
STUDY: LOW DOSE CT LUNG CANCER SCREENING REASON FOR EXAM: Female, 57 years old. LUNG SCREENING. The patient smoke half a pack per day for 30 years. RADIATION DOSAGE (If Supplied By Facility): CTDIvol = ( 3.02 ) mGy, DLP = ( 103.82 ) mGycm TECHNIQUE: No contrast was administered. Low dose technique was utilized (average mAS-38 and kVp 120). 1.25 mm axial source images with a slice interval of 1.25-mm were reconstructed in lung windows. 2.5 mm axial source images with a slice interval of 2.5-mm were reconstructed in lung windows. 5.0 mm axial source images with a slice interval of 5.0-mm were reconstructed in soft tissue windows. COMPARISON: Comparison is made with prior study dated 06/16/2020. NODULES: No suspicious nodules are seen. Emphysema: Hyperinflation. Mild degree of emphysematous changes. Endobronchial lesion: None Aorta: Atherosclerotic plaque formation of the aortic arch. CORONARY ARTERIES: Coronary artery calcification is seen. Heart: Unremarkable Pulmonary artery: Unremarkable Mediastinal nodes: Small benign-appearing mediastinal lymph nodes. Other chest and abdominal findings: Degenerative changes of the thoracic spine. CT/Low Dose CT Lung Screening IMPRESSION: Lung-RADS category 2 - Continue annual screening with LDCT in 12 months. IMPORTANT NOTES FOR USE: ACR Lung-RADS Version 1.1 Assessment Categories Release Date: 2018 Category: Coded 0-4 bases on nodule(s) with highest degree of suspicion. Negative screen is defined as categories 1 and 2; a positive screen is defined as categories 3 and 4. Category 3 and 4A nodules that are unchanged on interval CT should be coded as category 2, and individuals returned to screening in 12 months. Category 4X: Category 3 or 4 nodules with additional imaging findings that increase the suspicion of lung cancer, such as spiculation, GGN that doubles in size in 1 year, enlarged lymph notes, etc. Category Modifiers: S (significant finding unrelated to lung cancer) Electronically Signed: Meño Deleon MD at 14:05 EST ,
== END | disposition home or self-care (01) ==
PROVIDERS: PCP Family Medicine Geriatric Medicine; Referring Provider Family Medicine Geriatric Medicine; Visit Provider Family Medicine Geriatric Medicine
DX: F17.210 Nicotine dependence, cigarettes, uncomplicated (principal)
CPT/HCPCS: 71271

== ENCOUNTER → 2023-01-13 | Outpatient (CLI) | payer OTHER, SELFPAY | END | disposition home or self-care (01) | LOC: PSN 12:01 | PROVIDERS: PCP Family Medicine Geriatric Medicine; Referring Provider Family Medicine Geriatric Medicine; Visit Provider Family Medicine Geriatric Medicine | DX: R68.83 Chills (without fever) (principal) | CPT/HCPCS: 87635; 87804; 87807; C9803 ==

== ENCOUNTER → 2023-05-27 | Outpatient (CLI) | payer OTHER, SELFPAY ==
--- OUTSIDE RECORDS SUMMARY | 2023-05-27 11:46 | XMS RPT_ITS | CCD ---
Author Name Unknown Address [address] [place] [id number] Organization [facility] Results Test Name Value Interpretation Reference Range Facil ity Summary Purpose Family History No Family History Records Found Advance Directives No Advanced Directives Records Found Additional Source Comments INFORMATION SOURCE (unrecogn ized section and content) FOR RECORDS PERTAINING TO PATIENTS WHO ARE OR HAVE BEEN ENROLLED IN A CHEMICAL DEPENDENCY/SUBSTANCEABUSE PROGRAM, SOME INFORMATION MAY BE OMITTED. This clinical summary was aggregated from multiple sources. Caution should be exercised in using it in the provision of clinical care. This summary normalizes information from multiple sources, and as a consequence, information in this document may materially change the coding, format and clinical context of patient data. In addition, data may be omitted in some cases. CLINICAL DECISIONS SHOULD BE BASED ON THE PRIMARY CLINICAL RECORDS. [employer]. provides no warranty or guarantee of the accuracy or completeness of information in this document.
[2023-05-27 12:20] LABS: Absolute Lymphocyte Count 1.08 X10^3/uL (0.83-4.51); Absolute Neutrophil Count 3.4 X10^3/uL (2.0-7.7); Basophil# 0.01 X10^3/uL; Basophil% 0.2 % (0-1); Eosinophil# 0.02 X10^3/uL; Eosinophils% 0.4 % (0-5); Hematocrit 40.6 % (37-47); Hemoglobin 13.2 g/dL (12.0-15.0); Lymphocyte # 1.08 X10^3/ul (0.83-4.51); Lymphocyte % 21.3 % (19-41); Mean Corp Hgb Conc 32.5 g/dL (32-36); Mean Corpuscular Hgb 31.2 pg (27.0-32.0); Mean Platelet Vol. 10.2 fl (6.2-12.0); Monocyte# 0.58 X10^3/uL; Monocyte% 11.4 % (0-10); NRBC Flagged by Analyzer 0 % (0-5); Neutrophil # 3.36 X10^3/uL (2.7-7.7); Neutrophil % 66.3 % (47-70); Platelet Count 208 K/mm3 (150-450); RBC Distribution Width CV 12.7 % (11.6-14.6); RBC Distribution Width SD 45.1 fl (35.1-43.9); Red Blood Count 4.23 M/mm3 (4.2-5.4); White Blood Count 5.1 K/mm3 (4.4-11.0)
[2023-05-27 13:07] LABS: ALB/GLOB Ratio 1.1 RATIO (0.9-2.4); AST(SGOT) 17 U/L (15-37); Alanine Aminotransfer ALT/SGPT 28 U/L (13-56); Albumin, Serum 3.8 g/dL (3.2-5.0); Alkaline Phosphatase 88 U/L (45-117); Anion Gap 4 (5-15); BUN 12 mg/dL (7-18); BUN/Creat Ratio 13.9 RATIO (10-20); Calcium,Total 9.3 mg/dL (8.5-10.1); Chloride 106 mmol/L (98-107); Creatinine, Serum 0.86 mg/dL (0.55-1.02); EST Glomerular Filtration Rate 71 mL/min (>60); Est Glom Filt Rate - Afr Amer 86 mL/min (>60); Globulin 3.4 g/dL (2.2-4.2); Glucose 112 mg/dL (74-106); Potassium 3.7 mmol/L (3.5-5.1); Protein, Total 7.2 g/dL (6.4-8.2); Sodium Level 135 mmol/L (136-145); Thyroid Stim Hormone (TSH) 0.43 uIU/mL (0.358-3.74)
== END | disposition home or self-care (01) ==
LOC: POLAB3 11:19
PROVIDERS: PCP Family Medicine Geriatric Medicine; Visit Provider Family Medicine Geriatric Medicine
DX: R53.83 Other fatigue (principal)
CPT/HCPCS: 36415; 80053; 84443; 85025

== ENCOUNTER → 2023-06-24 | Outpatient (CLI) | payer OTHER, SELFPAY ==
--- NOTE | 2023-06-24 07:18 | BI_ITS ---
MAMMOGRAPHY - BILATERAL SCREENING REASON FOR EXAM: Female, 58 years old. Routine annual screening examination. PERTINENT HISTORY: Aunt with breast cancer. TECHNIQUE: Digital bilateral breast danay (3D mammographic acquisition) in the CC and MLO projections. 2-D mediolateral oblique (MLO) and craniocaudad (CC) views of both breasts were obtained. CAD: Full Field Digital Mammography with Computer Added Detection was performed. COMPARISON: Comparison is made with prior study dated March 16, 2021. FINDINGS: Breast Composition: The breasts are heterogeneously dense, which may obscure small masses. There are no dominant masses or suspicious calcifications. Stable small benign-appearing bilateral axillary lymph nodes. No other significant abnormalities are identified. There has been no significant change since the prior study. BI/SCRN MAMM (CAD)W/DANAY BILAT IMPRESSION: Stable bilateral screening mammogram. Yearly follow-up mammogram recommended. (A) ASSESSMENT CATEGORY: BIRADS Category 2: Benign. A letter regarding these results will be sent to the patient by the facility within 30 days. Approximately 10% of breast cancers are not detected by mammography. A normal mammogram should not delay biopsy of a clinically suspicious abnormality. [id number] Electronically Signed: Meño Deleon MD at 8:41 EST ,
--- OUTSIDE RECORDS SUMMARY | 2023-06-24 07:19 | XMS RPT_ITS | CCD ---
Author Name Unknown Address [address] [place] [id number] Organization [facility] Results Test Name Value Interpretation [...] BE BASED ON THE PRIMARY CLINICAL RECORDS. [employer]. provides no warranty or guarantee of the accuracy or completeness of information in this document.
== END | disposition home or self-care (01) ==
LOC: OPBI 07:17
PROVIDERS: PCP Family Medicine Geriatric Medicine; Referring Provider Family Medicine Geriatric Medicine; Visit Provider Family Medicine Geriatric Medicine
DX: Z12.31 Encounter for screening mammogram for malignant neoplasm of breast (principal)
CPT/HCPCS: 77063; 77067

== ENCOUNTER → 2023-12-01 | Outpatient (CLI) | payer OTHER, SELFPAY ==
[2023-12-03 17:07] LABS: H.Pylori Breath Test Negative (Negative)
== END | disposition home or self-care (01) ==
PROVIDERS: PCP Family Medicine Geriatric Medicine; Referring Provider Family Medicine Geriatric Medicine; Visit Provider Family Medicine Geriatric Medicine
DX: K25.9 Gastric ulcer, unspecified as acute or chronic, without hemorrhage or perforation (principal)
CPT/HCPCS: 83013

== ENCOUNTER → 2024-06-04 | Outpatient (CLI) | payer OTHER, SELFPAY ==
[2024-06-04 10:15] LABS: Absolute Lymphocyte Count 1.68 X10^3/uL (0.83-4.51); Absolute Neutrophil Count 2.3 X10^3/uL (2.0-7.7); Basophil# 0.03 X10^3/uL; Basophil% 0.7 % (0-1); Eosinophil# 0.24 X10^3/uL; Eosinophils% 5.2 % (0-5); Hematocrit 41.6 % (37-47); Hemoglobin 13.5 g/dL (12.0-15.0); Lymphocyte # 1.68 X10^3/ul (0.83-4.51); Lymphocyte % 36.4 % (19-41); Mean Corp Hgb Conc 32.5 g/dL (32-36); Mean Corpuscular Hgb 30.7 pg (27.0-32.0); Mean Corpuscular Volume 94.5 fL (81-99); Mean Platelet Vol. 10.1 fl (6.2-12.0); Monocyte# 0.31 X10^3/uL; Monocyte% 6.7 % (0-10); NRBC Flagged by Analyzer 0 % (0-5); Neutrophil # 2.34 X10^3/uL (2.7-7.7); Neutrophil % 50.8 % (47-70); Platelet Count 221 K/mm3 (150-450); RBC Distribution Width CV 12.7 % (11.6-14.6); RBC Distribution Width SD 44.7 fl (35.1-43.9); White Blood Count 4.6 K/mm3 (4.4-11.0)
[2024-06-04 11:41] LABS: ALB/GLOB Ratio 1.1 RATIO (0.9-2.4); AST(SGOT) 19 U/L (15-37); Alanine Aminotransfer ALT/SGPT 24 U/L (13-56); Albumin, Serum 3.8 g/dL (3.2-5.0); Alkaline Phosphatase 100 U/L (45-117); Anion Gap 7 (5-15); BUN 16 mg/dL (7-18); BUN/Creat Ratio 21.5 RATIO (10-20); Chloride 107 mmol/L (98-107); Cholesterol 226 mg/dL (200); Creatinine, Serum 0.74 mg/dL (0.55-1.02); EST Glomerular Filtration Rate 84 mL/min (>60); Est Glom Filt Rate - Afr Amer 102 mL/min (>60); Globulin 3.4 g/dL (2.2-4.2); Glucose 93 mg/dL (74-106); High Density Lipoprotein 31 mg/dL; Protein, Total 7.2 g/dL (6.4-8.2); Sodium Level 138 mmol/L (136-145); Triglycerides 308 mg/dL; Very Low Density Lipoprotein 62 mg/dL (5-40)
== END | disposition home or self-care (01) ==
LOC: LAB 09:34
PROVIDERS: PCP Family Medicine Geriatric Medicine; Referring Provider Family Medicine Geriatric Medicine; Visit Provider Family Medicine Geriatric Medicine
DX: Z12.5 Encounter for screening for malignant neoplasm of prostate (principal); R53.83 Other fatigue; E78.5 Hyperlipidemia, unspecified
CPT/HCPCS: 36415; 80053; 80061; 84443; 85025

== ENCOUNTER → 2024-07-16 | Outpatient (CLI) | payer OTHER, SELFPAY ==
--- NOTE | 2024-07-16 07:46 | CT_ITS ---
PROCEDURE: LOW DOSE CT LUNG SCREENING 07/16/2024 REASON FOR EXAM: NICOTINE DEPENDENCE Current smoker. Patient has smoked 1 pack per day for 30 years. TECHNIQUE: Low Dose CT Lung screening without contrast. Coronal and Sagittal reconstruction series were provided. One or more dose reduction techniques were used (e.g., Automated exposure control, adjustment of the mA and/or kV according to patient size, use of iterative reconstruction technique). COMPARISON: Comparison is made with prior study dated June 14, 2022. RADIATION DOSE SUMMARY: CTDlvol: 3.02 mGy DLP: 103.82 mGycm FINDINGS: PULMONARY NODULES: (Only nodules >3mm are reported) Nodules described below are on series 1 unless otherwise specified. Pulmonary Nodules: No suspicious nodules are seen. Hardware:None Lymph Nodes:Small scattered benign-appearing mediastinal lymph nodes. Heart and Vasculature:Atherosclerotic calcification of the aortic arch and descending thoracic aorta. Coronary Artery Calcifications: Present Lungs and Airways: Mild emphysematous changes are present. Pleura:Unremarkable Upper Abdomen:Unremarkable Bones:Degenerative changes of the thoracic spine. CT/Low Dose CT Lung Screening IMPRESSION: Stable examination. Lung-RADS Category: 2 BENIGN (BASED ON IMAGING FEATURES OR INDOLENT BEHAVIOR). RECOMMEND 12-MONTH SCREENING LDCT. Other Significant Findings: None. Reading Location: [place] [id number]
== END | disposition home or self-care (01) ==
LOC: CT 07:46
PROVIDERS: PCP Family Medicine Geriatric Medicine; Referring Provider Family Medicine Geriatric Medicine; Visit Provider Family Medicine Geriatric Medicine
DX: F17.210 Nicotine dependence, cigarettes, uncomplicated (principal)
CPT/HCPCS: 71271